=== PATIENT | female | born 1945 | race Caucasian/White ===

== ENCOUNTER 2017-10-03 18:52 | Emergency (ER) | payer OTHER ==
[2017-10-03] MEDS ORDERED: ONDANSETRON 4 MG/2 ML VIAL ONE (19:28)
[2017-10-03] MEDS ORDERED: MORPHINE 4 MG/ML SYR ONE (19:28)
[2017-10-03 19:45] LABS: Absolute Monocytes 0.7 K/uL (0.1-1.3); Absolute Neutrophil 6.4 K/uL (1.8-8.0); Basophils % 0.3 % (0-1.3); Eosinophils % 1.5 % (0-4.4); Hematocrit 36.9 % (36.0-45.0); Lymphocytes % 21.1 % (15.3-44.8); MCH 29.1 pg (27.0-35.0); MCV 87.8 fL (80-100); MPV 9.3 fL (7.6-11.3); Monocytes % 8.1 % (3.3-12.3)
[2017-10-03 19:49] LABS: Uric Acid 7.3 mg/dL (2.6-6.0)
[2017-10-03] MEDS ORDERED: COLCHICINE 0.6 MG TAB ONE ×2 (20:03→21:02)
--- NOTE | 2017-10-03 20:03 | RAD REPORT ---
EXAM DESCRIPTION: [employer] [employer]10/03/2017 7:51 pm CLINICAL HISTORY: left leg pain COMPARISON: None. FINDINGS: Left common femoral, superficial femoral, popliteal and posterior tibial veins are compre ssible and demonstrate augmentation. Doppler demonstrates good flow. IMPRESSION: No evidence of deep venous thrombosis involving the left lower extremity.
[2017-10-03] MEDS ORDERED: MEPERIDINE HCL 50 MG/ML AMP ONE (20:24)
[2017-10-03] MEDS ORDERED: CLINDAMYCIN 900MG/D5W 900 MG/50 ML BAG IV ONE (20:24)
--- NOTE | 2017-10-03 20:33 | EDPHYS ---
Physician Documentation [facility] Name: Erica Mena Age: 72 yrs Sex: Female : 1945 Arrival Date: 10/03/2017 Time: 19:02 Bed 7 Private MD: ED Physician Juan Vazquez HPI: 10/03 19:15 This 72 yrs old Female presents to ER via EMS with unknown complaint. pkl 19:15 The patient presents with pain, that is acute, swelling, tenderness. The complaints pkl affect the left ankle and leg. Onset: The symptoms/episode began/occurred 5 day(s) ago. Patient sail she has H/O of gout. Ran out of allupurinol.. Historical: - Allergies: 19:14 Compazine; mg2 19:14 vicodine; mg2 - Home Meds: 19:14 metformin 1,000 mg Oral tab [Active]; omeprazole 40 mg Oral cpDR [Active]; pravastatin mg2 20 mg oral tab [Active]; chlordiazep [Active]; bisoprolol-hydrochlorothiazide 2.5-6.25 mg oral tab [Active]; lisinopril 40 mg Oral tab [Active]; levothyroxine 25 mcg tab [Active]; tramadol 50 mg Oral tab [Active]; - PMHx: 19:14 Diabetes - NIDDM; Glaucoma; cardiac dysrythmia; mg2 - PSHx: 19:14 Hysterectomy; mg2 - Immunization history:: Flu vaccine is not up to date. - Social history:: Smoking status: Patient/guardian denies using tobacco, Patient/guardian denies using alcohol, street drugs, IV drugs. - Ebola Screening: : No symptoms or risks identified at this time. ROS: 19:15 Eyes: Negative for injury, pain, redness, and discharge, ENT: Negative for injury, pkl pain, and discharge, Neck: Negative for injury, pain, and swelling, Cardiovascular: Negative for chest pain, palpitations, and edema, Respiratory: Negative for shortness of breath, cough, wheezing, and pleuritic chest pain, Abdomen/GI: Negative for abdominal pain, nausea, vomiting, diarrhea, and constipation, Back: Negative for injury and pain, : Negative for injury, bleeding, discharge, and swelling, Neuro: Negative for headache, weakness, numbness, tingling, and seizure. 19:15 MS/extremity: Positive for erythema, pain, swelling, tenderness, of the left ankle. Exam: 19:21 Head/Face: Normocephalic, atraumatic. Eyes: Pupils equal round and reactive to light, pkl extra-ocular motions intact. Lids and lashes normal. Conjunctiva and sclera are non-icteric and not injected. Cornea within normal limits. Periorbital areas with no swelling, redness, or edema. ENT: Nares patent. No nasal discharge, no septal abnormalities noted. Tympanic membranes are normal and external auditory canals are clear. Oropharynx with no redness, swelling, or masses, exudates, or evidence of obstruction, uvula midline. Mucous membranes moist. Neck: Trachea midline, no thyromegaly or masses palpated, and no cervical lymphadenopathy. Supple, full range of motion without nuchal rigidity, or vertebral point tenderness. No Meningismus. Chest/axilla: Normal chest wall appearance and motion. Nontender with no deformity. No lesions are appreciated. Cardiovascular: Regular rate and rhythm with a normal S1 and S2. No gallops, murmurs, or rubs. Normal PMI, no JVD. No pulse deficits. Respiratory: Lungs have equal breath sounds bilaterally, clear to auscultation and percussion. No rales, rhonchi or wheezes noted. No increased work of breathing, no retractions or nasal flaring. Abdomen/GI: Soft, non-tender, with normal bowel sounds. No distension or tympany. No guarding or rebound. No evidence of tenderness throughout. Back: No spinal tenderness. No costovertebral tenderness. Full range of motion. Neuro: Awake and alert, GCS 15, oriented to person, place, time, and situation. Cranial nerves II-XII grossly intact. Motor strength 5/5 in all extremities. Sensory grossly intact. Cerebellar exam normal. Normal gait. 19:21 Musculoskeletal/extremity: Extremities: grossly normal except: noted in the left ankle: erythema, pain, swelling, tenderness. Vital Signs: 19:14 BP 153 / 93; Pulse 80; Resp 18; Temp 98.7(O); Pulse Ox 100% ; Weight 104.78 kg; Height mg2 5 ft. 6 in. (167.64 cm); Pain 4/10; 20:15 BP 142 / 70; Pulse 76; Resp 18; Temp 98.6; Pulse Ox 98% on R/A; ea 21:00 BP 137 / 57; Pulse 74; Resp 18; Pulse Ox 98% on R/A; Pain 2/10; ea 19:14 Body Mass Index 37.28 (104.78 kg, 167.64 cm) mg2 MDM: 20:22 Data reviewed: vital signs, nurses notes, lab test result(s), radiologic studies, pkl ultrasound. ED course: Discussed lab. and US results with patient. Advised patient to stay with daughter next 2 days and follow up with Dr. Carmichael on Thursday. Advised to return to ER symptoms are worse. Patient and daughter understood instructions. 20:32 Patient medically screened. pkl 10/03 19:14 Order name: CBC with Diff; Complete Time: 20:35 pkl 10/03 19:14 Order name: Chem 7; Complete Time: 19:52 pkl 10/03 19:14 Order name: Sed Rate; Complete Time: 20:35 pkl 10/03 19:14 Order name: Uric Acid; Complete Time: 19:52 pkl 10/03 19:14 Order name: D-Dimer; Complete Time: 19:52 pkl 10/03 19:14 Order name: US Extremity Venous Unilateral Ltd; Complete Time: 20:14 pkl 10/03 19:14 Order name: Saline Lock; Complete Time: 19:38 pkl Administered Medications: 19:33 Drug: morphine 2 mg Route: IVP; Site: right antecubital; ea 20:03 Follow up: Response: No adverse reaction; Pain is decreased ea 19:33 Drug: Zofran 4 mg Route: IVP; Site: right antecubital; ea 20:03 Follow up: Response: No adverse reaction; Pain is decreased ea 20:03 Drug: Colcrys 1.2 mg Route: PO; ea 20:28 Follow up: Response: No adverse reaction ea 20:28 Drug: Demerol 50 mg Route: IVP; Site: right antecubital; ea 21:10 Follow up: Response: No adverse reaction; Pain is decreased ea 20:30 Drug: Clindamycin 900 mg Route: IVPB; Infused Over: 30 mins; Site: right antecubital; ea 21:10 Follow up: Response: No adverse reaction; IV Status: Completed infusion ea 21:07 Drug: Colcrys 0.6 mg Route: PO; ea 21:10 Follow up: Response: Medication administered at discharge. ea Disposition: 10/03/17 20:32 Discharged to Home. Impression: Cellulitis left ankle. Possible gout. - Condition is Stable. - Prescriptions for Clindamycin HCl 300 mg Oral Capsule - take 1 capsule by ORAL route every 6 hours for 7 days; 28 capsule. Ultram 50 mg Oral Tablet - take 1 tablet by ORAL route every 8 hours As needed; 20 tablet. Allopurinol 100 mg Oral Tablet - take 1 tablet by ORAL route once daily; 30 tablet. - Medication Reconciliation Form, Thank You Letter, Antibiotic Education, Prescription Opioid Use form. - Follow up: Dariel Carmichael MD; When: 2 - 3 days; Reason: Re-evaluation by your physician. Signatures: Dispatcher [employer] EDMS Juan Vazquez MD MD pkl Ayana Pugh RN RN ea Gardose, Michele, RN RN mg2 Corrections: (The following items were deleted from the chart) 21:14 20:32 10/03/2017 20:32 Discharged to Home. Impression: Cellulitis left ankle. Possible ea gout. Condition is Stable. Forms are Medication Reconciliation Form, Thank You Letter, Antibiotic Education, Prescription Opioid Use. Follow up: Dariel Carmichael; When: 2 - 3 days; Reason: Re-evaluation by your physician. pkl
--- NOTE | 2017-10-03 20:33 | ER ---
Nurse's Notes [facility] Name: Erica Mena Age: 72 yrs Sex: Female : 1945 Arrival Date: 10/03/2017 Time: 19:02 Bed 7 Private MD: Diagnosis: Cellulitis left ankle. Possible gout Presentation: 10/03 19:02 Presenting complaint: EMS states: she has gouty pain since 1 week. she ran out of mg2 allupurinol and cant afford the new medication prescribed to her this week, she also complains of dizziness and unable to bend her back. Transition of care: patient was not received from another setting of care. Onset of symptoms was September 26, 2017. Risk Assessment: Do you want to hurt yourself or someone else? Patient reports no desire to harm self or others. Initial Sepsis Screen: Does the patient meet any 2 criteria? No. Patient's initial sepsis screen is negative. Does the patient have a suspected source of infection? No. Patient's initial sepsis screen is negative. Care prior to arrival: None. 19:02 Method Of Arrival: EMS mg2 19:02 Acuity: JAYA 4 mg2 Historical: - Allergies: 19:14 Compazine; mg2 19:14 vicodine; mg2 - Home Meds: 19:14 metformin 1,000 mg Oral tab [Active]; omeprazole 40 mg Oral cpDR [Active]; pravastatin mg2 20 mg oral tab [Active]; chlordiazep [Active]; bisoprolol-hydrochlorothiazide 2.5-6.25 mg oral tab [Active]; lisinopril 40 mg Oral tab [Active]; levothyroxine 25 mcg tab [Active]; tramadol 50 mg Oral tab [Active]; - PMHx: 19:14 Diabetes - NIDDM; Glaucoma; cardiac dysrythmia; mg2 - PSHx: 19:14 Hysterectomy; mg2 - Immunization history:: Flu vaccine is not up to date. - Social history:: Smoking status: Patient/guardian denies using tobacco, Patient/guardian denies using alcohol, street drugs, IV drugs. - Ebola Screening: : No symptoms or risks identified at this time. Screenin:43 Abuse screen: Denies threats or abuse. Nutritional screening: No deficits noted. ea Tuberculosis screening: No symptoms or risk factors identified. Fall Risk None identified. Assessment: 19:28 General: Appears in no apparent distress. Behavior is calm, cooperative, appropriate ea for age. Pain: Complains of pain in left lateral ankle Pain currently is 10 out of 10 on a pain scale. Quality of pain is described as aching, Pain began suddenly, Is continuous. Neuro: Level of Consciousness is awake, alert, obeys commands, Oriented to person, place, time, situation. Cardiovascular: Heart tones S1 S2 present Patient's skin is warm and dry. Respiratory: Airway is patent Respiratory effort is even, unlabored, Respiratory pattern is regular, symmetrical, Breath sounds are clear. GI: Abdomen is obese, Bowel sounds present X 4 quads. Derm: Skin is pink, warm \T\ dry. warm inflamed red area noted to left inner ankle. 19:51 Reassessment: Sandra from lab called with D-Dimer of 1525. ea 21:11 Reassessment: Patient and/or family updated on plan of care and expected duration. Pain ea level reassessed. Patient is alert, oriented x 3, equal unlabored respirations, skin warm/dry/pink. Discharge instructions given to patient, verbalized the understanding of instructions. Daughter at bedside. Patient states feeling better. Patient states symptoms have improved. Vital Signs: 19:14 BP 153 / 93; Pulse 80; Resp 18; Temp 98.7(O); Pulse Ox 100% ; Weight 104.78 kg; Height mg2 5 ft. 6 in. (167.64 cm); Pain 4/10; 20:15 BP 142 / 70; Pulse 76; Resp 18; Temp 98.6; Pulse Ox 98% on R/A; ea 21:00 BP 137 / 57; Pulse 74; Resp 18; Pulse Ox 98% on R/A; Pain 2/10; ea 19:14 Body Mass Index 37.28 (104.78 kg, 167.64 cm) mg2 ED Course: 19:02 Patient arrived in ED. mg2 19:05 Juan Vazquez MD is Attending Physician. pkl 19:05 Triage completed. mg2 19:20 Ayana Pugh, RYLEE is Primary Nurse. ea 19:28 Patient has correct armband on for positive identification. Bed in low position. Call ea light in reach. Side rails up X2. 19:28 Arm band placed on right wrist. ea 19:33 Inserted saline lock: 20 gauge in right antecubital area, using aseptic technique. oe Blood collected. 19:50 Ultrasound completed. Patient tolerated well. sg3 19:52 US Extremity Venous Unilateral Ltd In Process Unspecified. EDMS 20:31 Dariel Carmichael MD is Referral Physician. pkl 21:12 No provider procedures requiring assistance completed. IV discontinued, intact, ea bleeding controlled, No redness/swelling at site. Pressure dressing applied. Administered Medications: 19:33 Drug: morphine 2 mg Route: IVP; Site: right antecubital; ea 20:03 Follow up: Response: No adverse reaction; Pain is decreased ea 19:33 Drug: Zofran 4 mg Route: IVP; Site: right antecubital; ea 20:03 Follow up: Response: No adverse reaction; Pain is decreased ea 20:03 Drug: Colcrys 1.2 mg Route: PO; ea 20:28 Follow up: Response: No adverse reaction ea 20:28 Drug: Demerol 50 mg Route: IVP; Site: right antecubital; ea 21:10 Follow up: Response: No adverse reaction; Pain is decreased ea 20:30 Drug: Clindamycin 900 mg Route: IVPB; Infused Over: 30 mins; Site: right antecubital; ea 21:10 Follow up: Response: No adverse reaction; IV Status: Completed infusion ea 21:07 Drug: Colcrys 0.6 mg Route: PO; ea 21:10 Follow up: Response: Medication administered at discharge. ea Outcome: 20:32 Discharge ordered by . pkl 21:13 Discharged to home via wheelchair, with family. ea 21:13 Condition: improved 21:13 Discharge instructions given to patient, family, Instructed on discharge instructions, follow up and referral plans. medication usage, Demonstrated understanding of instructions, follow-up care, medications, Prescriptions given X 3. 21:14 Patient left the ED. ea Signatures: Dispatcher [employer] EDMS Juan Vazquez MD MD pkl Oliver Huertas Elena, RN RN Pippa Huntley sg3 Rei Ghosh RN RN mg2
== END 2017-10-03 21:14 | disposition home or self-care (01) ==
LOC: ER 18:52
DX: L03.116 Cellulitis of left lower limb (principal); Z88.5 Allergy status to narcotic agent; Z88.8 Allergy status to other drugs, medicaments and biological substances; E11.39 Type 2 diabetes mellitus with other diabetic ophthalmic complication; H40.9 Unspecified glaucoma; H42 Glaucoma in diseases classified elsewhere; Z79.84 Long term (current) use of oral hypoglycemic drugs; I49.9 Cardiac arrhythmia, unspecified
CPT/HCPCS: 36415; 80048; 84550; 85025; 85379; 85652; 93971; J2175; J2405; 96365; 96375; 99284

== ENCOUNTER 2020-03-22 07:59 | Day surgery (SDC) | payer OTHER ==
[2020-03-22 08:20] LABS: Absolute Lymphocytes (CBC) 2.6 K/uL (0.7-4.9); Basophils % 0.6 % (0-1.3); Hematocrit 40.2 % (36.0-45.0); Lymphocytes % 35.6 % (15.3-44.8); MPV 9.4 fL (7.6-11.3)
[2020-03-22 08:34] LABS: Potassium 3.6 mmol/L (3.5-5.1)
[2020-03-22] MEDS ORDERED: CEFAZOLIN/SWI 1gm 1 GM/10 ML SYR ONE (08:49)
--- NOTE | 2020-03-22 08:51 | RAD REPORT ---
EXAM DESCRIPTION: Amee Molina (2 Views)03/22/2020 8:36 am CLINICAL HISTORY: Preop for temporal lobe biopsy COMPARISON: 2009 FINDINGS: The lungs appear clear of acute infiltrate. The heart is normal size IMPRESSION: No acute abnormalities displayed
[2020-03-22] MEDS: NA CHLORIDE 0.9% 1,000 ML ONE (09:21)
[2020-03-22] MEDS ORDERED: LIDOCAINE 1% MPF 5 ML VIAL ONE (09:25)
[2020-03-22] MEDS ORDERED: FENTANYL CITR 100 MCG/2 ML ONE (09:25)
[2020-03-22] MEDS ORDERED: MIDAZOLAM HCL 2 MG/2 ML INJ ONE (09:25)
[2020-03-22] MEDS ORDERED: propofoL 200 MG/20 ML VIAL IV ONE ×2 (09:25→09:39)
[2020-03-22] MEDS ORDERED: LIDOCAINE 1% MPF 30 ML VIAL ONE (09:29)
[2020-03-22] MEDS ORDERED: KETOROLAC 30 MG/ML INJ ONE (10:16)
[2020-03-22] MEDS ORDERED: DIPHENHYDRAMINE 50 MG/ML VIAL ONE (10:16)
[2020-03-22 12:35] VITALS: BP 141/61; TEMP 97.9; O2SAT 91
--- NOTE | 2020-04-16 12:10 | DS ---
Date of Discharge: 03/22/2020 Diagnosis: Temporal arteritis. Procedure: Temporal artery biopsy. Disposition: Home. Activity: As tolerated. No heavy lifting. Plan: Follow up in my office in 1 week. Call for appointment at [phone]. Keep area dry for 24 dalia rs, then may shower. Medications: See orders. ADENIKE/GOLDY Voice ID: [id number] Report ID: [id number]
--- NOTE | 2020-04-16 12:19 | OP ---
Date of Procedure: 03/22/2020 Surgeon: Carlos Mckeon MD Preoperative Diagnosis: Temporal arteritis. Postoperative Diagnosis: Temporal arteritis. Procedure Performed: Temporal artery biopsy. Anesthesia: General plus local. Indications: This is a case of a 75-year-old patient seen by furnace installer due to a suspicious reuben gnosis of temporal arteritis, so a temporal artery biopsy was requested. The patient fully explained the benefits, alternatives, and risks of it, which include, but not limited to infection, bleeding, damage to adjacent structures, anesthesia complication, wound infection, hematomas, alopecia, NH and even . She also understands this may not relieve any symptoms. She might need more than one shane rgical intervention. She understood, signed a consent. The patient tell us the area which she has s ymptoms and we proceeded to do a temporal artery biopsy in that same site. Description Of Procedure: The area was prepped and draped in a usual sterile fashion. We used a Dop pler to identify the artery. Local anesthesia was applied followed by sharp incision of the skin. I ncision was carried down to subcutaneous tissue until temporal artery was identified in the superfici al layers of the temporal fascia. Blunt dissection was done with the help of a hemostat. This was d one in a way parallel to the artery to avoid any tear occurring of it. Hemostats were placed underne ath it and then we proceeded to isolate the blood vessel by using a silk proximal and distal. After they were tied, the blood vessel was carefully managed and transected and sent to the pathologist. N o bleeding. The area was irrigated. We proceeded to close the area with 3-0 chromic and then adhesi ve outside. The patient tolerated the procedure well. The sponge count, instrument counts correct. The patient was sent to recovery in stable condition. ADENIKE/GOLDY Voice ID: [id number] Report ID: [id number]
== END 2020-03-22 11:00 | disposition home or self-care (01) ==
LOC: OR 07:59
PROVIDERS: ATTEND Surgery
PROC: 03BT0ZX Excision of Left Temporal Artery, Open Approach, Diagnostic (ICD-10-PCS; principal; 2020-03-22 09:30)
DX: M31.6 Other giant cell arteritis (principal); Z20.822 Contact with and (suspected) exposure to COVID-19
CPT/HCPCS: 93005; 85025; 80048; 36415; 88305; 71046; 37609; J2704 ×2; J1200; J2250; J3010; J0690; J7030; U0002

== ENCOUNTER 2022-10-16 19:09 | Emergency (ER) | payer OTHER ==
[2022-10-16] MEDS ORDERED: ACETAMINOPHEN 500 MG TAB ONE (20:05)
--- NOTE | 2022-10-16 20:53 | ER ---
Nurse's Notes [facility] Name: Erica Mena Age: 77 yrs Sex: Female : 1945 Arrival Date: 10/16/2022 Time: 19:09 Bed 8 Private MD: Diagnosis: SARS-associated coronavirus as the cause of diseases classified elsewhere;Essential (primary) hypertension Presentation: 10/16 19:15 Chief complaint: Patient states: cough, congestion, headache, fever X2 days. lg3 Coronavirus screen: Client denies travel out of the [place] in the last 14 days. Client presents with at least one sign or symptom that may indicate coronavirus-19. Standard/surgical mask placed on the client. Ebola Screen: No symptoms or risks identified at this time. Initial Sepsis Screen: Does the patient meet any 2 criteria? No. Patient's initial sepsis screen is negative. Does the patient have a suspected source of infection? No. Patient's initial sepsis screen is negative. Risk Assessment: Do you want to hurt yourself or someone else? Patient reports no desire to harm self or others. Onset of symptoms was October 13, 2022. 19:15 Method Of Arrival: EMS: [facility] lg3 19:15 Acuity: JAYA 4 lg3 Triage Assessment: 19:17 General: Appears in no apparent distress. comfortable, Behavior is calm, cooperative. lg3 Pain: Complains of pain in head. EENT: No deficits noted. No signs and/or symptoms were reported regarding the EENT system. Neuro: No deficits noted. Das Agitation-Sedation Scale (RASS): 0 - Alert and Calm Level of Consciousness is awake, alert, obeys commands, Oriented to person, place, time, situation. Cardiovascular: No deficits noted. Denies chest pain, shortness of breath, Capillary refill < 3 seconds Clubbing of nail beds is absent JVD is absent Patient's skin is warm and dry. Respiratory: No deficits noted. Reports cough that is persistent Airway is patent Respiratory effort is even, unlabored, Respiratory pattern is regular, symmetrical. GI: No deficits noted. No signs and/or symptoms were reported involving the gastrointestinal system. Abdomen is round non-distended. : No deficits noted. No signs and/or symptoms were reported regarding the genitourinary system. Derm: No deficits noted. No signs and/or symptoms reported regarding the dermatologic system. Skin is intact, is healthy with good turgor, Skin is dry, Skin is normal, Skin temperature is warm. Musculoskeletal: No deficits noted. No signs and/or symptoms reported regarding the musculoskeletal system. Circulation, motion, and sensation intact. Range of motion: intact in all extremities. Historical: - Allergies: 19:17 Compazine; lg3 19:17 vicodine; lg3 - PMHx: 19:17 cardiac dysrythmia; Diabetes - NIDDM; Glaucoma; Hypertensive disorder; Gout; Depressive lg3 disorder; hyperlipidemia; Hypothyroidism; - PSHx: 19:17 hysterectomy; shoulder; breast lipomas; lg3 - Immunization history:: Adult Immunizations up to date, Client reports receiving the 2nd dose of the Covid vaccine, Pneumococcal vaccine is up to date, Flu vaccine is up to date. - Social history:: Smoking status: Patient denies any tobacco usage or history of. Patient/guardian denies using alcohol, street drugs. Screenin:20 [facility] ED Fall Risk Assessment (Adult) History of falling in the last 3 months, lg3 including since admission No falls in past 3 months (0 pts). Abuse screen: Denies threats or abuse. Denies injuries from another. Nutritional screening: No deficits noted. Tuberculosis screening: No symptoms or risk factors identified. Assessment: 19:20 General: see triage assessment . lg3 20:00 Reassessment: No changes from previously documented assessment. Patient and/or family vc1 updated on plan of care and expected duration. Pain level reassessed. Patient is alert, oriented x 3, equal unlabored respirations, skin warm/dry/pink. 20:55 Reassessment: No changes from previously documented assessment. Patient and/or family vc1 updated on plan of care and expected duration. Pain level reassessed. Patient is alert, oriented x 3, equal unlabored respirations, skin warm/dry/pink. Vital Signs: 19:15 BP 150 / 67; Pulse 94; Resp 16 S; Temp 99(O); Pulse Ox 98% on R/A; Weight 88.9 kg (R); lg3 Height 5 ft. 5 in. (R); 20:00 BP 143 / 69; Pulse 95; Resp 16; Pulse Ox 100% ; vc1 20:53 BP 132 / 62; Pulse 88; Resp 16; Pulse Ox 100% ; vc1 19:15 Body Mass Index 32.62 (88.90 kg, 165.1 cm) lg3 ED Course: 19:13 Patient arrived in ED. lg3 19:13 Keo Rascon DO is Attending Physician. ms3 19:15 Desire Tyson, RN is Primary Nurse. lg3 19:17 Triage completed. lg3 19:17 Arm band placed on right wrist. lg3 19:20 Patient has correct armband on for positive identification. Bed in low position. Call 3 light in reach. Side rails up X 1. Client placed on continuous cardiac and pulse oximetry monitoring. NIBP monitoring applied. Door closed. Noise minimized. Warm blanket given. 19:20 Patient maintains SpO2 saturation greater than 95% on room air. lg3 20:10 COVID-19 SARS RT PCR Sent. lg3 20:10 Flu Sent. lg3 20:52 Dariel Carmichael MD is Referral Physician. ms3 20:55 No provider procedures requiring assistance completed. Patient did not have IV access vc1 during this emergency room visit. 21:03 Provided Education on: Self quarantine for 5 days. vc1 Administered Medications: 20:02 Drug: Acetaminophen PO 1000 mg Route: PO; vc1 Medication: 20:55 VIS not applicable for this client. vc1 Outcome: 20:52 Discharge ordered by . ms3 21:03 Discharged to home ambulatory, with family. vc1 21:03 Condition: good 21:03 Discharge instructions given to patient, Instructed on discharge instructions, follow up and referral plans. Demonstrated understanding of instructions, follow-up care. 21:04 Patient left the ED. vc1 Signatures: Desire Tyson, RN RN 3 Keo Rascon DO DO ms3 Shannan Godoy RN RN vc1
--- NOTE | 2022-10-16 20:53 | EDPHYS ---
Physician Documentation [facility] Name: Erica Mena Age: 77 yrs Sex: Female : 1945 Arrival Date: 10/16/2022 Time: 19:09 Bed 8 Private MD: ED Physician Keo Rascon HPI: 10/16 19:29 This 77 yrs old Female presents to ER via EMS with complaints of cough, body aches, ms3 headache, chills. 19:32 77-year-old female with past medical history of diabetes, glaucoma, hypertension ms3 presents for headache that is been ongoing for 2 days. Patient states at 5 PM she developed chills, shaking. Patient states she took ibuprofen at 5 PM. Patient rates her discomfort a 2/10 describes it as aching. Patient denies nausea, vomiting. Patient endorses decreased oral intake and cough.. Historical: - Allergies: 19:17 Compazine; lg3 19:17 vicodine; lg3 - PMHx: 19:17 cardiac dysrythmia; Diabetes - NIDDM; Glaucoma; Hypertensive disorder; Gout; Depressive lg3 disorder; hyperlipidemia; Hypothyroidism; - PSHx: 19:17 hysterectomy; shoulder; breast lipomas; lg3 - Immunization history:: Adult Immunizations up to date, Client reports receiving the 2nd dose of the Covid vaccine, Pneumococcal vaccine is up to date, Flu vaccine is up to date. - Social history:: Smoking status: Patient denies any tobacco usage or history of. Patient/guardian denies using alcohol, street drugs. ROS: 19:32 Neck: Negative for injury, pain, and swelling, Cardiovascular: Negative for chest pain, ms3 and palpitations. 19:32 Abdomen/GI: Negative for abdominal pain, nausea, vomiting, diarrhea, and constipation, MS/Extremity: Negative for injury and deformity, Skin: Negative for injury, rash, and discoloration. 19:32 Constitutional: Positive for body aches, chills, fatigue, malaise, poor PO intake. 19:32 Respiratory: Positive for cough. 19:32 All other systems are negative. Exam: 19:32 Constitutional: This is a well developed, well nourished patient who is awake, alert, ms3 and in no acute distress. Head/Face: Normocephalic, atraumatic. Neck: Trachea midline, no cervical lymphadenopathy. Supple, full range of motion without nuchal rigidity, or vertebral point tenderness. No Meningismus. Chest/axilla: Normal chest wall appearance and motion. Nontender with no deformity. Cardiovascular: Regular rate and rhythm with a normal S1 and S2. No gallops, murmurs, or rubs. Normal PMI, no JVD. No pulse deficits. Respiratory: Lungs have equal breath sounds bilaterally, clear to auscultation and percussion. No rales, rhonchi or wheezes noted. No increased work of breathing, no retractions or nasal flaring. Abdomen/GI: Soft, non-tender, with normal bowel sounds. No distension or tympany. No guarding or rebound. No evidence of tenderness throughout. Skin: Warm, dry with normal turgor. Normal color with no rashes, no lesions, and no evidence of cellulitis. Vital Signs: 19:15 BP 150 / 67; Pulse 94; Resp 16 S; Temp 99(O); Pulse Ox 98% on R/A; Weight 88.9 kg (R); lg3 Height 5 ft. 5 in. (R); 20:00 BP 143 / 69; Pulse 95; Resp 16; Pulse Ox 100% ; vc1 20:53 BP 132 / 62; Pulse 88; Resp 16; Pulse Ox 100% ; vc1 19:15 Body Mass Index 32.62 (88.90 kg, 165.1 cm) lg3 MDM: 19:28 Patient medically screened. ms3 19:32 Differential Diagnosis: Influenza Upper Respiratory Infection Other COVID. ms3 20:59 Data reviewed: vital signs, nurses notes, and as a result, I will discharge patient. I ms3 considered the following discharge prescriptions or medication management in the emergency department Medications were administered in the Emergency Department. See MAR. Counseling: I had a detailed discussion with the patient and/or guardian regarding the historical points, exam findings, and any diagnostic results supporting the discharge/admit diagnosis, lab results, the need for outpatient follow up, to return to the emergency department if symptoms worsen or persist or if there are any questions or concerns that arise at home. Special discussion: I discussed with the patient/guardian in detail that at this point there is no indication for admission to the hospital. It is understood, however, that if the symptoms persist or worsen the patient needs to return immediately for re-evaluation. ED course: Discussed symptomatic care with patient. Patient to follow-up with Dr. Chilel in 2 to 3 days. Patient understands and agrees with plan. All questions were answered. Return precautions discussed include worsening symptoms, or any other concerns. 10/16 19:28 Order name: Flu; Complete Time: 20:50 ms3 10/16 19:28 Order name: COVID-19 SARS RT PCR ms3 Administered Medications: 20:02 Drug: Acetaminophen PO 1000 mg Route: PO; vc1 Disposition Summary: 10/16/22 20:52 Discharge Ordered Location: Home ms3 Condition: Stable ms3 Diagnosis - SARS-associated coronavirus as the cause of diseases classified elsewhere ms3 - Essential (primary) hypertension ms3 Followup: ms3 - With: Dariel Carmichael MD - When: 2 - 3 days - Reason: Recheck today's complaints Discharge Instructions: - Discharge Summary Sheet ms3 - Hypertension, Adult ms3 - COVID-19 ms3 - How to Protect Yourself and Others - [facility] (04/12/2021) ms3 - 10 Things You Can Do to Manage Your COVID-19 Symptoms at Home - [facility] (08/31/2020) ms3 - Viral Illness, Adult ms3 Forms: - Medication Reconciliation Form ms3 - Thank You Letter ms3 - Antibiotic Education ms3 - Prescription Opioid Use ms3 - Patient Portal Instructions ms3 - Leadership Thank You Letter ms3 Signatures: Dispatcher [employer] Desire Champagne, RN RN lg3 Keo Rascon DO DO ms3 Shannan Godoy RN RN vc1
[2022-10-16 22:05] VITALS: TEMP 99
[2022-10-16 22:06] VITALS: O2SAT 100
[2022-10-16 22:07] VITALS: BP 132/62
== END 2022-10-16 21:04 | disposition home or self-care (01) ==
LOC: ER 19:09
DX: U07.1 COVID-19 (principal); I10 Essential (primary) hypertension; E11.9 Type 2 diabetes mellitus without complications; Z88.1 Allergy status to other antibiotic agents; Z88.5 Allergy status to narcotic agent
CPT/HCPCS: 87635; 87804; 99284